=== PATIENT | female | born 1995 | race Caucasian/White ===

== ENCOUNTER 2016-07-30 01:40 | Emergency (ER) | payer OTHER ==
[2016-07-30] MEDS ORDERED: SODIUM CHLORIDE 0.9% 1,000 ML IV ONE (02:04)
[2016-07-30 02:45] LABS: Basophils % (A) 0 %; CH 29.8; Eosinophils % (A) 0 %; HCT 38.3 % (34.0-46.0); HDW 2.24; HGB 12.7 gm/dL (11.4-16.0); Luc # (Auto) 0.09; Luc % (Auto) 1; Lymphocytes # (A) 0.7 k/uL (1.0-4.8); Lymphocytes % (A) 6 %; MCH 29.2 pg (25.0-35.0); MCHC 33.2 g/dL (31.0-37.0); Mean Platelet Volume 6.5; Monocytes # (A) 0.5 k/uL (0-1.0); Monocytes % (A) 4 %; Neutrophils # (A) 10.5 k/uL (1.3-7.7); Neutrophils % (A) 89 %; RBC 4.36 m/uL (3.80-5.40); RDW 12.7 % (11.5-15.5); WBC 11.9 k/uL (4.0-11.0)
--- NOTE | 2016-07-30 02:51 | XR ---
EXAM: XR Chest, 2 Views. CLINICAL HISTORY: Reason: Cough and chest pain TECHNIQUE: Frontal and lateral views of the chest. COMPARISON: None FINDINGS: Lungs/pleura: Normal. No focal consolidation. No pleural effusion or pneumothorax. Heart/mediastinum: Normal. No cardiomegaly. Soft tissues: Unremarkable. Bones: No acute fracture. Upper abdomen: Normal. IMPRESSION: No acute disease.
[2016-07-30 02:53] LABS: ALT 25 U/L (9-52); AST 19 U/L (14-36); Alkaline Phosphatase 70 U/L (38-126); Anion Gap 13 mmol/L; Blood Urea Nitrogen 13 mg/dL (7-17); Calcium 9.6 mg/dL (8.4-10.2); Carbon Dioxide 21 mmol/L (22-30); Chloride 106 mmol/L (98-107); Glucose 99 mg/dL (74-99); Non-African American GFR(MDRD) >60 (>60 ml/min/1.73 sqM); Potassium 3.8 mmol/L (3.5-5.1); Sodium 140 mmol/L (137-145); Total Bilirubin 0.5 mg/dL (0.2-1.3); Total Protein 7.7 g/dL (6.3-8.2)
[2016-07-30 03:04] VITALS: RESP 18
[2016-07-30] MEDS ORDERED: KETOROLAC 30 MG/ML 1 ML VIAL IVP STA (03:14)
[2016-07-30] MEDS ORDERED: AZITHROMYCIN 500 MG TAB PO STA (03:14)
--- NOTE | 2016-07-30 03:15 | ED ---
Fever HPI - General Chief Complaint: Fever Stated Complaint: fever, neck pain Time Seen by Provider: 07/30/16 01:52 Source: patient, RN notes reviewed Mode of arrival: ambulatory Limitations: no limitations - History of Present Illness Initial Comments: Patient is a 20-year-old female chief complaint of sore throat, neck pain, body aches and fever for approximately 2 days. Patient states that he's been taking Motrin and Tylenol throughout the day. She states last dose of Motrin Tylenol as 45 minutes prior to arriving to the emergency department. Patient states that she has no significant past medical history. She states she's had a mild cough. Patient states nonproductive. She states that she's had no history of mono. She denies any history of sick contacts. Patient reports that she is a college student. Patient states that she receives all childhood vaccinations including a meningitis vaccination. - Related Data Previous Rx's Medication Instructions Recorded Azithromycin [Zithromax Z-pack] 250 mg PO DIRECTED #6 tab 07/30/16 Allergies Allergy/AdvReac Type Severity Reaction Status Date / Time No Known Allergies Allergy Verified 07/30/16 01:51 Review of Systems ROS Statement: Those systems with pertinent positive or pertinent negative responses have been documented in the HPI. ROS Other: All systems not noted in ROS Statement are negative. Past Medical History Past Medical History: No Reported History History of Any Multi-Drug Resistant Organisms: MRSA Date of last positivie culture/infection: 2008 MDRO Source:: buttock Past Surgical History: Hernia Repair Past Psychological History: Anxiety Smoking Status: Never smoker Past Alcohol Use History: None Reported Past Drug Use History: None Reported General Exam - General Exam Comments Initial Comments: Patient is a pleasant 20-year-old female. Patient does not appear to be in any acute distress. Limitations: no limitations General appearance: alert, in no apparent distress Head exam: Present: atraumatic, normocephalic, normal inspection Eye exam: Present: normal appearance, PERRL, EOMI. Absent: scleral icterus, conjunctival injection, periorbital swelling ENT exam: Present: normal exam, mucous membranes moist. Absent: normal oropharynx (Erythematous and enlarged tonsils. No evidence of exudate.) Neck exam: Present: normal inspection, full ROM, lymphadenopathy (anterior cervical lymphadenopathy), other (She has negative Brudzinski and Kernig sign.) . Absent: tenderness, meningismus Respiratory exam: Present: normal lung sounds bilaterally. Absent: respiratory distress, wheezes, rales, rhonchi, stridor Cardiovascular Exam: Present: regular rate, tachycardia, normal heart sounds. Absent: normal rhythm, systolic murmur, diastolic murmur, rubs, gallop, clicks GI/Abdominal exam: Present: soft, normal bowel sounds. Absent: distended, tenderness, guarding, rebound, rigid Extremities exam: Present: normal inspection, full ROM, normal capillary refill. Absent: tenderness, pedal edema, joint swelling, calf tenderness Back exam: Present: normal inspection Neurological exam: Present: alert, oriented X3, CN II-XII intact Psychiatric exam: Present: normal affect, normal mood Skin exam: Present: warm, dry, intact, normal color. Absent: rash Course Vital Signs 07/30/16 07/30/16 01:49 02:52 Temperature 102.4 F H 100.7 F H Pulse Rate 124 H 117 H Respiratory 20 18 Rate Blood Pressure 110/60 114/57 O2 Sat by Pulse 95 100 Oximetry Medical Decision Making - Medical Decision Making This is a pleasant 20-year-old female chief complaint of sore throat, neck pain , and fever for approximately one day. Patient received Motrin Tylenol 45 minutes prior to arriving to the emergency department. Patient's vital signs of the emergency department for fever of 102.4. Tachycardic at 1 24 bpm. Respiratory rate in breaths per minute. BP stable. Patient physical exam findings are consistent with anterior cervical lymphadenopathy. She does have significantly erythematous and swollen tonsils. Patient has no exudate. Patient has negative meningeal signs include a negative Kernig's and Brudzinski sign. Patient lab work was obtained and patient given IV fluids. Patient was negative for flu, strep and heterophile. Patient will be started on antibiotic for physical exam findings of her tonsils. Patient be started on azithromycin. Discussed close follow-up with primary care provider on Sunday. Patient agrees to stay hydrated discussed Motrin and Tylenol every 4 hours. Patient agrees with treatment plan will comply. Return parameters were discussed. - Lab Data Result diagrams: 07/30/16 02:00 07/30/16 02:00 Lab Results 04/23/17 04/23/17 04/23/17 Range/Units 02:00 02:00 02:00 WBC 11.9 H (4.0-11.0) k/uL RBC 4.36 (3.80-5.40) m/uL Hgb 12.7 (11.4-16.0) gm/dL Hct 38.3 (34.0-46.0) % MCV 88.0 (80.0-100.0) fL MCH 29.2 (25.0-35.0) pg MCHC 33.2 (31.0-37.0) g/dL RDW 12.7 (11.5-15.5) % Plt Count 279 (150-450) k/uL Neutrophils % 89 % Lymphocytes % 6 % Monocytes % 4 % Eosinophils % 0 % Basophils % 0 % Neutrophils # 10.5 H (1.3-7.7) k/uL Lymphocytes # 0.7 L (1.0-4.8) k/uL Monocytes # 0.5 (0-1.0) k/uL Eosinophils # 0.0 (0-0.7) k/uL Basophils # 0.0 (0-0.2) k/uL Sodium (137-145) mmol/L Potassium (3.5-5.1) mmol/L Chloride (98-107) mmol/L Carbon Dioxide (22-30) mmol/L Anion Gap mmol/L BUN (7-17) mg/dL Creatinine (0.52-1.04) mg/dL Est GFR (MDRD) Af Amer (>60 ml/min/1.73 sqM) Est GFR (MDRD) Non-Af (>60 ml/min/1.73 sqM) Glucose (74-99) mg/dL Calcium (8.4-10.2) mg/dL Total Bilirubin (0.2-1.3) mg/dL AST (14-36) U/L ALT (9-52) U/L Alkaline Phosphatase (38-126) U/L Total Protein (6.3-8.2) g/dL Albumin (3.5-5.0) g/dL Heterophile Antibody (Negative) Influenza Type A RNA Not Detected (Not Detectd) Influenza Type B (PCR) Not Detected (Not Detectd) Group A Strep Rapid Negative (Negative) 04/23/17 04/23/17 Range/Units 02:00 02:00 WBC (4.0-11.0) k/uL RBC (3.80-5.40) m/uL Hgb (11.4-16.0) gm/dL Hct (34.0-46.0) % MCV (80.0-100.0) fL MCH (25.0-35.0) pg MCHC (31.0-37.0) g/dL RDW (11.5-15.5) % Plt Count (150-450) k/uL Neutrophils % % Lymphocytes % % Monocytes % % Eosinophils % % Basophils % % Neutrophils # (1.3-7.7) k/uL Lymphocytes # (1.0-4.8) k/uL Monocytes # (0-1.0) k/uL Eosinophils # (0-0.7) k/uL Basophils # (0-0.2) k/uL Sodium 140 (137-145) mmol/L Potassium 3.8 (3.5-5.1) mmol/L Chloride 106 (98-107) mmol/L Carbon Dioxide 21 L (22-30) mmol/L Anion Gap 13 mmol/L BUN 13 (7-17) mg/dL Creatinine 0.90 (0.52-1.04) mg/dL Est GFR (MDRD) Af Amer >60 (>60 ml/min/1.73 sqM) Est GFR (MDRD) Non-Af >60 (>60 ml/min/1.73 sqM) Glucose 99 (74-99) mg/dL Calcium 9.6 (8.4-10.2) mg/dL Total Bilirubin 0.5 (0.2-1.3) mg/dL AST 19 (14-36) U/L ALT 25 (9-52) U/L Alkaline Phosphatase 70 (38-126) U/L Total Protein 7.7 (6.3-8.2) g/dL Albumin 4.4 (3.5-5.0) g/dL Heterophile Antibody Negative (Negative) Influenza Type A RNA (Not Detectd) Influenza Type B (PCR) (Not Detectd) Group A Strep Rapid (Negative) - Radiology Data Radiology results: report reviewed X-rays x-rays negative for any acute process. Disposition Clinical Impression: Pharyngitis Disposition: HOME SELF-CARE Condition: Good Instructions: Fever in Adults (ED), Pharyngitis (ED) Additional Instructions: Follow-up with primary care provider on Sunday. Return to the emergency department if any alarming signs or symptoms occur. Patient advised to alternate between Motrin and Tylenol every 4 hours. Rest, remain hydrated. Prescriptions: Azithromycin [Zithromax Z-pack] 250 mg PO DIRECTED #6 tab Time of Disposition: 03:13
[2016-07-30 03:30] VITALS: BP 113/70; PULSE 109; TEMP 98.6
[2016-07-30 03:33] LABS: Appearance,Urine Clear (Clear); Bacteria,Urine Rare /hpf; Bilirubin,Urine Negative (Negative); Glucose,Urine (UA) Negative (Negative); Ketones,Urine Negative (Negative); Leukocyte Esterase,Urine Trace (Negative); Mucus,Urine Rare /hpf; Nitrite,Urine Negative (Negative); PH, Urine 6.5 (5.0-8.0); Particle Count 2235; Protein,Urine Trace (Negative); RBC,Urine 2 /hpf (0-5); Specific Gravity,Urine 1.023 (1.001-1.035); Squamous Epithelial Cell,Urine 3 /hpf (0-4); UA Billing (MACRO vs. MICRO) MICRO; Urobilinogen,Urine <2.0 mg/dL (<2.0); WBC,Urine 6 /hpf (0-5)
== END 2016-07-30 03:41 | disposition home or self-care (01) ==
LOC: EC 01:40
DX: J02.9 Acute pharyngitis, unspecified (principal); M54.2 Cervicalgia
CPT/HCPCS: 36415; 80053; 85025; 86308; 81001; 81025; 87081; 87430; 87502; 71020; 99283; 96374; 96361; J1885

== ENCOUNTER → 2017-03-08 | Outpatient (CLI) | payer OTHER ==
--- NOTE | 2017-03-08 10:22 | USB ---
Reason for exam: clinical finding. Physical Findings: Nurse Summary: left breast 10 o'clock patient area concern, prominent nodular area, bilateral nodularity (nurse ts). US Breast LT Left breast ultrasound includes all four quadrants, the retroareolar region and axilla. Finding demonstrates no cystic or solid lesion seen. Nothing seen at 10 o'clock BB. Dense tissues noted at the palpable site. These results were verbally communicated with the patient and result sheet given to the patient on 03/08/17. ASSESSMENT: Negative, BI-RAD 1 RECOMMENDATION: Routine screening mammogram of both breasts at age 41. (unless clinical indication to start sooner) Manage on a clinical basis with regard to any suspicious palpable finding.
== END ==
LOC: RADUSWWP 08:13
PROVIDERS: ATTEND Pediatrics
DX: N63.20 Unspecified lump in the left breast, unspecified quadrant (principal)

== ENCOUNTER 2017-06-23 16:24 | Emergency (ER) | payer OTHER ==
[2017-06-23 17:03] VITALS: BP 134/78; PULSE 93; RESP 16; TEMP 98.7
--- NOTE | 2017-06-23 17:23 | ED ---
General Adult HPI - General Chief complaint: Extremity Problem,Nontraumatic Stated complaint: Tailbone Pain Time Seen by Provider: 06/23/17 17:03 Source: patient, RN notes reviewed Mode of arrival: ambulatory Limitations: no limitations - History of Present Illness Initial comments: 21 yo female presents to the ER with cc of tailbone pain. Patient states her tailbone has been hurting for the last 3 days. She denies any falls, trauma, or injury. SHe has not had drainage or discharge. SHe denies any history of this in the past. She states one certain area hurts to touch more then the other. NO other complaints. Patient denies any other symptoms. Patient denies any recent fever, chills, shortness of breath, chest pain, back pain, abdominal pain, nausea vomiting, numbness or tingling, dysuria or hematuria, constipation or diarrhea, headaches or visual changes, or any other current symptoms. - Related Data Previous Rx's Medication Instructions Recorded Sulfamethox-Tmp 800-160Mg [Bactrim 2 each PO Q12HR #56 tab 06/23/17 DS 800-160 mg] Allergies Allergy/AdvReac Type Severity Reaction Status Date / Time No Known Allergies Allergy Verified 06/23/17 17:14 Review of Systems ROS Statement: Those systems with pertinent positive or pertinent negative responses have been documented in the HPI. ROS Other: All systems not noted in ROS Statement are negative. Past Medical History Past Medical History: No Reported History History of Any Multi-Drug Resistant Organisms: MRSA Date of last positivie culture/infection: 2008 MDRO Source:: buttock Past Surgical History: Hernia Repair Past Psychological History: Anxiety Smoking Status: Never smoker Past Alcohol Use History: None Reported Past Drug Use History: None Reported General Exam Limitations: no limitations General appearance: alert, in no apparent distress ENT exam: Present: normal exam, mucous membranes moist Neck exam: Present: normal inspection. Absent: tenderness, meningismus, lymphadenopathy Respiratory exam: Present: normal lung sounds bilaterally. Absent: respiratory distress, wheezes, rales, rhonchi, stridor Cardiovascular Exam: Present: regular rate, normal rhythm, normal heart sounds. Absent: systolic murmur, diastolic murmur, rubs, gallop, clicks Back exam: Present: normal inspection, full ROM, tenderness (over the right of sacrum no redness, no fluctuance) Neurological exam: Present: alert, oriented X3 Psychiatric exam: Present: normal affect, normal mood Skin exam: Present: warm, dry, intact, normal color. Absent: rash Course Vital Signs 06/23/17 17:01 Temperature 98.7 F Pulse Rate 93 Respiratory 16 Rate Blood Pressure 134/78 O2 Sat by Pulse 99 Oximetry Medical Decision Making - Medical Decision Making 21-year-old female presents with pain over the right side of the sacrum. At this time is improving abscess x-rays reviewed and negative. At this time we discussed follow-up with her doctor. We discussed we will start her on antibiotics in case there is a starting of a pilonidal cyst. Patient stated that she understood and she is agreement this plan. All questions have been answered. She'll be discharged. Disposition Clinical Impression: Pilonidal cyst Disposition: HOME SELF-CARE Condition: Stable Instructions: Pilonidal Cyst (ED) Additional Instructions: Please use medication as discussed. Please follow up with family doctor if symptoms have not improved over the next two days. Please return to the emergency room if your symptoms increase or worsen or for any other concerns. Prescriptions: Sulfamethox-Tmp 800-160Mg [Bactrim DS 800-160 mg] 2 each PO Q12HR #56 tab Referrals: Dewey Jha MD [Primary Care Provider] - 1-2 days Time of Disposition: 17:53
--- NOTE | 2017-06-23 17:35 | XR ---
EXAMINATION TYPE: XR sacrum coccyx DATE OF EXAM: 06/23/2017 CLINICAL HISTORY: Sacral pain TECHNIQUE: 3 views of the sacrum were obtained. COMPARISON: None. FINDINGS: There is no acute fracture/dislocation evident in the pelvis. The hip and sacroiliac join ts appear symmetric and unremarkable. The overlying soft tissue appears unremarkable. IMPRESSION: There is no acute fracture or dislocation in the pelvis.
== END 2017-06-23 18:00 | disposition home or self-care (01) ==
LOC: EC 16:24
DX: L05.91 Pilonidal cyst without abscess (principal); Z86.14 Personal history of Methicillin resistant Staphylococcus aureus infection
CPT/HCPCS: 72220; 99283

== ENCOUNTER → 2017-11-26 | Outpatient (CLI) | payer OTHER ==
--- NOTE | 2017-11-26 11:21 | US ---
EXAMINATION TYPE: US abdomen complete DATE OF EXAM: 11/26/2017 COMPARISON: Complete abdominal ultrasound August 12, 2014 CLINICAL HISTORY: R10.9 Abdominal pain. Generalized abdomen pain. NPO. EXAM MEASUREMENTS: Liver Length: 12.6 cm Gallbladder Wall: 0.2 cm CBD: 0.2 cm CHD: 0.2 cm Spleen: 9.9 cm Right Kidney: 10.9 x 4.3 x 4.4 cm Left Kidney: 10.1 x 4.5 x 5.2 cm Pancreas: wnl Liver: wnl Gallbladder: wnl Evidence for sonographic Lara's sign: neg CBD: wnl CHD: wnl Spleen: wnl Right Kidney: wnl Left Kidney: wnl Upper IVC: wnl Abd Aorta: wnl The visualized liver is homogenous. The intrahepatic portion of the IVC and proximal abdominal aorta are within normal limits. There is no evidence of cholelithiasis. Common bile duct is unremarkable . The visualized portions of the pancreas are homogenous. The spleen is unremarkable. Kidneys are symmetric and free of hydronephrosis. No suspicious solid or cystic renal lesions are seen. IMPRESSION: No suspicious finding is seen to account for patient's symptoms.
== END | disposition home or self-care (01) ==
LOC: RADUSWWP 09:47
PROVIDERS: ATTEND Pediatrics
DX: R10.9 Unspecified abdominal pain (principal)
CPT/HCPCS: 76700

== ENCOUNTER → 2018-11-29 | Outpatient (CLI) | payer OTHER ==
--- NOTE | 2018-11-29 14:11 | US ---
EXAMINATION TYPE: US abdomen complete DATE OF EXAM: 11/29/2018 COMPARISON: 11/26/2017 CLINICAL HISTORY: R10.33 Periumbilical pain; N92.6 Irregular..... Pelvic pain and cramping, diarrhea EXAM MEASUREMENTS: Liver Length: 12.6 cm Gallbladder Wall: 0.2 cm CBD: 0.5 cm Spleen: 8.7 cm Right Kidney: 10.1 x 4.9 x 3.7 cm Left Kidney: 10.1 x 4.1 x 5.1 cm Pancreas: wnl Liver: wnl Gallbladder: wnl Evidence for sonographic Lara's sign: no CBD: wnl Spleen: wnl Right Kidney: wnl Left Kidney: wnl Upper IVC: wnl Abd Aorta: wnl Impressions: 1. Normal abdomen ultrasound.
--- NOTE | 2018-11-29 14:13 | US ---
EXAMINATION TYPE: US pelvic complete DATE OF EXAM: 11/29/2018 COMPARISON: NONE CLINICAL HISTORY: R10.33 Periumbilical pain; N92.6 Irregular..... irregular menses ( not every month) x 1.5 years; pelvic pain and cramping, diarrhea. TECHNIQUE: Transvaginal (TV) and Transabdominal (TA) . Transabdominal sonographic images of the pel vis were acquired. Transvaginal sonographic images were medically necessary to better assess the fol lowing anatomy: endometrium Date of LMP: 11/07/2018 EXAM MEASUREMENTS: Uterus: 7.4 x 4.9 x 2.4 cm Endometrial Stripe: 0.7 cm Right Ovary: 2.5 x 2.4 x 2.1 cm Left Ovary: 2.6 x 2.0 x 1.7 cm 1. Uterus: Anteverted 2. Endometrium: arcuate appearance to upper endometrium and thickness is wnl 3. Right Ovary: small follicles present and possible involuting cyst with peripheral ring of color flow = 1.0 x 1.2 x 1.4cm 4. Left Ovary: small follicles Spectral, color and waveform Doppler imaging shows good arterial and venous flow within the ovaries ; there is no evidence for ovarian torsion. 5. Bilateral Adnexa: wnl 6. Posterior cul-de-sac: wnl IMPRESSION: 1. There is a suggestion of the endometrial canal could have an arcuate appearance. This may be diana r evaluated with MRI. 2. Small right ovarian cyst which may be an involuting cyst.
== END | disposition home or self-care (01) ==
LOC: RADUSWWP 12:10
PROVIDERS: ATTEND Pediatrics
DX: N83.201 Unspecified ovarian cyst, right side (principal); R10.33 Periumbilical pain; N92.6 Irregular menstruation, unspecified
CPT/HCPCS: 76700; 76830; 76856

== ENCOUNTER → 2019-12-26 | Outpatient (CLI) | payer OTHER ==
--- NOTE | 2019-12-26 16:42 | CT ---
EXAMINATION TYPE: CT abdomen pelvis w con DATE OF EXAM: 12/26/2019 COMPARISON: Abdominal ultrasound 11/29/2018 HISTORY: Right upper quadrant abdominal pain. CT DLP: 345.2 mGycm Automated exposure control for dose reduction was used. TECHNIQUE: Helical acquisition of images was performed from the lung bases through the pelvis. CONTRAST: Performed with Oral Contrast and with IV Contrast, patient injected with 100ml mL of Isovue 300. FINDINGS: LUNG BASES: Normal. LIVER: Normal. BILIARY SYSTEM: Normal. PANCREAS: Normal. SPLEEN: Normal. ADRENALS: Normal. KIDNEYS: Normal. BOWEL: Normal. PERITONEUM: No free air is visualized. No free fluid. ADENOPATHY: No lymphadenopathy. PELVIS: Normal. VASCULATURE: No abdominal aortic aneurysm. MUSCULOSKELETAL: Normal. IMPRESSION: No acute abdominopelvic process. Unremarkable CT exam.
== END | disposition home or self-care (01) ==
LOC: RADCTMAIN 13:02
PROVIDERS: ATTEND Pediatrics
DX: R10.11 Right upper quadrant pain (principal)
CPT/HCPCS: 74177; Q9967

== ENCOUNTER 2020-06-19 13:32 | Emergency (ER) | payer OTHER ==
[2020-06-19 13:45] VITALS: RESP 18; TEMP 98.4
[2020-06-19] MEDS ORDERED: ACETAMINOPHEN TAB 325 MG TAB PO STA (14:25)
[2020-06-19] MEDS ORDERED: SODIUM CHLORIDE 0.9% 1,000 ML IV ONE (14:25)
[2020-06-19 15:31] LABS: Appearance,Urine Clear (Clear); Bacteria,Urine Rare /hpf; Bilirubin,Urine Negative (Negative); Blood,Urine Moderate (Negative); Color,Urine Yellow; Glucose,Urine (UA) Negative (Negative); Ketones,Urine Negative (Negative); Leukocyte Esterase,Urine Negative (Negative); Mucus,Urine Few /hpf; Nitrite,Urine Negative (Negative); Protein,Urine Negative (Negative); RBC,Urine 3 /hpf (0-5); Specific Gravity,Urine 1.023 (1.001-1.035); Squamous Epithelial Cell,Urine 2 /hpf (0-4); Urobilinogen,Urine <2.0 mg/dL (<2.0); WBC,Urine 1 /hpf (0-5)
--- NOTE | 2020-06-19 15:32 | US ---
EXAMINATION TYPE: Transabdominal/ TV OB US DATE OF EXAM: 06/19/2020 3:06 PM COMPARISON: NONE CLINICAL HISTORY: pain. Vaginal bleeding in early ; . EXAM PERFORMED: Transvaginal (TV) and Transabdominal (TA) EXAM MEASUREMENTS: GESTATIONAL AGE / DATING Physician Established: Not yet established Dates by LMP: approximation per patient (9 weeks/5 days) EDC: 01/17/2021 Dates by First Scan: No previous Dates by Current Scan for: No IUP or ectopic is seen MATERNAL ANATOMY Uterus: 6.4 x 5.0 x 3.8cm, thin anechoic fluid area = 1.0 x 0.3 x 0.1cm is seen in cervix. Right Ovary: 3.9 x 2.9 x 2.0cm; complex cyst noted in right ovary = 0.8 x 1.0 x 0.9cm Left Ovary: 2.8 x 2.4 x 2.1cm; primarily hypoechoic solid oval mass seen in left ovary with periphera l ring of color flow suggests corpus luteum of = 0.9 x 1.2 x 0.8cm Post CDS / Adnexa: wnl Presence of free fluid: no Presence of corpus luteal cyst: in left ovary GESTATION / SURVEY No IUP or ectopic is seen by US. Date of LMP: approximately 04/12/2020 Beta HcG (if available): NA IMPRESSION: The uterus is empty. No adnexal mass or free fluid seen to suggest ectopic . No evidence of ovarian torsion.
[2020-06-19 15:40] LABS: ALT 10 U/L (4-34); AST 26 U/L (14-36); African American GFR (CKD) >90 (>60 ml/min/1.73 sqM); Albumin 5.2 g/dL (3.5-5.0); Alkaline Phosphatase 55 U/L (38-126); Anion Gap 12 mmol/L; Basophils % (A) 1 %; Blood Urea Nitrogen 13 mg/dL (7-17); Calcium 9.8 mg/dL (8.4-10.2); Carbon Dioxide 22 mmol/L (22-30); Chloride 106 mmol/L (98-107); Eosinophils # (A) 0.1 k/uL (0-0.7); Eosinophils % (A) 1 %; Glucose 93 mg/dL (74-99); HCT 42.7 % (34.0-46.0); HGB 14.5 gm/dL (11.4-16.0); Lymphocytes # (A) 1.5 k/uL (1.0-4.8); Lymphocytes % (A) 21 %; MCH 30.9 pg (25.0-35.0); MCHC 34.1 g/dL (31.0-37.0); MCV 90.8 fL (80.0-100.0); Mean Platelet Volume 6.6; Monocytes # (A) 0.4 k/uL (0-1.0); Monocytes % (A) 6 %; Neutrophils # (A) 4.8 k/uL (1.3-7.7); Neutrophils % (A) 70 %; Non-African American GFR(CKD) >90 (>60 ml/min/1.73 sqM); Platelet Count 463 k/uL (150-450); Potassium 4.5 mmol/L (3.5-5.1); RDW 12.2 % (11.5-15.5); Sodium 140 mmol/L (137-145); Total Bilirubin 0.3 mg/dL (0.2-1.3); Total Protein 8.4 g/dL (6.3-8.2); WBC 6.8 k/uL (3.8-10.6)
[2020-06-19 15:51] LABS: HCG,Quantitative Serum 191.2 mIU/mL
--- NOTE | 2020-06-19 16:14 | ED ---
General Adult HPI - General Chief complaint: Vaginal Bleeding Stated complaint: Bleeding/9 weeks preg Time Seen by Provider: 06/19/20 13:56 Source: patient Mode of arrival: ambulatory Limitations: no limitations - History of Present Illness Initial comments: 24-year-old female patient presents to the emergency department today for evaluation of vaginal bleeding and abdominal cramping. Patient states that she's had symptoms for the last couple of days. States she did have a couple of small blood clots. Patient states her last menstrual period was April 16. States she does have irregular periods. Had a positive test about a week ago. She is . No history of miscarriage. Denies dizziness or weakness. She has not yet seen an [facility]. No previous ultrasound. Patient denies any recent rash, fever, chills, cough, shortness of breath, chest pain, nausea, vomiting, diarrhea, constipation, numbness, tingling, dizziness, weakness, hematuria, dysuria, urinary urgency, urinary frequency, headache, visual changes, or any other complaints. - Related Data Previous Rx's Medication Instructions Recorded Sulfamethox-Tmp 800-160Mg [Bactrim 2 each PO Q12HR #56 tab 06/23/17 DS 800-160 mg] Allergies Allergy/AdvReac Type Severity Reaction Status Date / Time No Known Allergies Allergy Verified 06/19/20 13:45 Review of Systems ROS Statement: Those systems with pertinent positive or pertinent negative responses have been documented in the HPI. ROS Other: All systems not noted in ROS Statement are negative. Past Medical History Past Medical History: No Reported History History of Any Multi-Drug Resistant Organisms: MRSA Date of last positivie culture/infection: 2008 MDRO Source:: buttock Past Surgical History: Hernia Repair Past Psychological History: Anxiety Smoking Status: Never smoker Past Alcohol Use History: None Reported Past Drug Use History: None Reported General Exam Limitations: no limitations General appearance: alert, in no apparent distress, other (Physical well- developed, well-nourished adult female patient in no acute distress. Vital signs upon presentation are temperature 98.4F, pulse 98, respirations 18, blood pressure 118/76, pulse ox 100% on room air.) Eye exam: Present: normal appearance, PERRL, EOMI. Absent: scleral icterus, conjunctival injection, periorbital swelling ENT exam: Present: normal exam, normal oropharynx, mucous membranes moist Respiratory exam: Present: normal lung sounds bilaterally. Absent: respiratory distress, wheezes, rales, rhonchi, stridor Cardiovascular Exam: Present: regular rate, normal rhythm, normal heart sounds. Absent: systolic murmur, diastolic murmur, rubs, gallop, clicks GI/Abdominal exam: Present: soft, normal bowel sounds. Absent: distended, tenderness, guarding, rebound, rigid External exam: Present: normal external exam Speculum exam: Present: vaginal bleeding, other (Cervical os is closed) By manual exam: Present: normal by manual exam Neurological exam: Present: alert, oriented X3, CN II-XII intact Psychiatric exam: Present: normal affect, normal mood Skin exam: Present: warm, dry, intact, normal color. Absent: rash Course Vital Signs 06/19/20 06/19/20 06/19/20 13:41 16:34 16:38 Temperature 98.4 F 98.4 F Pulse Rate 98 77 77 Respiratory 18 18 18 Rate Blood Pressure 118/76 112/60 112/60 O2 Sat by Pulse 100 100 100 Oximetry Medical Decision Making - Medical Decision Making 24-year-old female patient presents to the emergency department today for a dilation of vaginal bleeding. Had a positive test 1 week ago. She is . Physical examination is unremarkable. Patient did have mild this bleeding from the cervical os which was closed. Labs reviewed and did reveal hCG of 191. Ultrasound showed empty uterus. ABO/Rh is B+. We did discuss findings and results. She will be given a lab slip to have repeat hCG performed in 2 days. We did discuss possibility of threatened miscarriage versus early . She is instructed to contact her [facility] for appointment. Return parameters were discussed in detail. She verbalizes understanding and agrees with this plan. Case discussed with my attending Dr. Cardenas. - Lab Data Result diagrams: 06/19/20 15:10 06/19/20 15:10 Lab Results 06/19/20 06/19/20 06/19/20 Range/Units 15:10 15:10 15:10 WBC 6.8 (3.8-10.6) k/uL RBC 4.70 (3.80-5.40) m/uL Hgb 14.5 (11.4-16.0) gm/dL Hct 42.7 (34.0-46.0) % MCV 90.8 (80.0-100.0) fL MCH 30.9 (25.0-35.0) pg MCHC 34.1 (31.0-37.0) g/dL RDW 12.2 (11.5-15.5) % Plt Count 463 H (150-450) k/uL MPV 6.6 Neutrophils % 70 % Lymphocytes % 21 % Monocytes % 6 % Eosinophils % 1 % Basophils % 1 % Neutrophils # 4.8 (1.3-7.7) k/uL Lymphocytes # 1.5 (1.0-4.8) k/uL Monocytes # 0.4 (0-1.0) k/uL Eosinophils # 0.1 (0-0.7) k/uL Basophils # 0.0 (0-0.2) k/uL Sodium 140 (137-145) mmol/L Potassium 4.5 (3.5-5.1) mmol/L Chloride 106 (98-107) mmol/L Carbon Dioxide 22 (22-30) mmol/L Anion Gap 12 mmol/L BUN 13 (7-17) mg/dL Creatinine 0.81 (0.52-1.04) mg/dL Est GFR (CKD-EPI)AfAm >90 (>60 ml/min/1.73 sqM) Est GFR (CKD-EPI)NonAf >90 (>60 ml/min/1.73 sqM) Glucose 93 (74-99) mg/dL Calcium 9.8 (8.4-10.2) mg/dL Total Bilirubin 0.3 (0.2-1.3) mg/dL AST 26 (14-36) U/L ALT 10 (4-34) U/L Alkaline Phosphatase 55 (38-126) U/L Total Protein 8.4 H (6.3-8.2) g/dL Albumin 5.2 H (3.5-5.0) g/dL HCG, Quant 191.2 mIU/mL Urine Color Yellow Urine Appearance Clear (Clear) Urine pH 5.0 (5.0-8.0) Ur Specific [place] 1.023 (1.001-1.035) Urine Protein Negative (Negative) Urine Glucose (UA) Negative (Negative) Urine Ketones Negative (Negative) Urine Blood Moderate H (Negative) Urine Nitrite Negative (Negative) Urine Bilirubin Negative (Negative) Urine Urobilinogen <2.0 (<2.0) mg/dL Ur Leukocyte Esterase Negative (Negative) Urine RBC 3 (0-5) /hpf Urine WBC 1 (0-5) /hpf Ur Squamous Epith Cells 2 (0-4) /hpf Urine Bacteria Rare H (None) /hpf Urine Mucus Few H (None) /hpf Blood Type Blood Type Recheck Bld Type Recheck Status 06/19/20 Range/Units 15:10 WBC (3.8-10.6) k/uL RBC (3.80-5.40) m/uL Hgb (11.4-16.0) gm/dL Hct (34.0-46.0) % MCV (80.0-100.0) fL MCH (25.0-35.0) pg MCHC (31.0-37.0) g/dL RDW (11.5-15.5) % Plt Count (150-450) k/uL MPV Neutrophils % % Lymphocytes % % Monocytes % % Eosinophils % % Basophils % % Neutrophils # (1.3-7.7) k/uL Lymphocytes # (1.0-4.8) k/uL Monocytes # (0-1.0) k/uL Eosinophils # (0-0.7) k/uL Basophils # (0-0.2) k/uL Sodium (137-145) mmol/L Potassium (3.5-5.1) mmol/L Chloride (98-107) mmol/L Carbon Dioxide (22-30) mmol/L Anion Gap mmol/L BUN (7-17) mg/dL Creatinine (0.52-1.04) mg/dL Est GFR (CKD-EPI)AfAm (>60 ml/min/1.73 sqM) Est GFR (CKD-EPI)NonAf (>60 ml/min/1.73 sqM) Glucose (74-99) mg/dL Calcium (8.4-10.2) mg/dL Total Bilirubin (0.2-1.3) mg/dL AST (14-36) U/L ALT (4-34) U/L Alkaline Phosphatase (38-126) U/L Total Protein (6.3-8.2) g/dL Albumin (3.5-5.0) g/dL HCG, Quant mIU/mL Urine Color Urine Appearance (Clear) Urine pH (5.0-8.0) Ur Specific [place] (1.001-1.035) Urine Protein (Negative) Urine Glucose (UA) (Negative) Urine Ketones (Negative) Urine Blood (Negative) Urine Nitrite (Negative) Urine Bilirubin (Negative) Urine Urobilinogen (<2.0) mg/dL Ur Leukocyte Esterase (Negative) Urine RBC (0-5) /hpf Urine WBC (0-5) /hpf Ur Squamous Epith Cells (0-4) /hpf Urine Bacteria (None) /hpf Urine Mucus (None) /hpf Blood Type B Positive Blood Type Recheck No Previous Record Bld Type Recheck Status [facility] ONLY - Radiology Data Radiology results: report reviewed Ultrasound of the pelvis is obtained report reviewed in its entirety. Impression by Dr. Harding shows empty uterus. No adnexal mass or free fluid seen to suggest ectopic . No evidence of ovarian torsion. Disposition Clinical Impression: Threatened Disposition: HOME SELF-CARE Condition: Good Instructions (If sedation given, give patient instructions): Threatened Miscarriage (ED) Additional Instructions: Follow up with OBGYN for recheck as soon as possible. Pelvic rest until follow up with OBGYN. Increase fluids. Rest. Take, Motrin for pain control. Follow- up the primary care physician for recheck as needed. Return to the emergency department for any new, worsening, or concerning symptoms. Is patient prescribed a controlled substance at d/c from ED?: No Referrals: None,Stated [Primary Care Provider] - 1-2 days Time of Disposition: 16:20
[2020-06-19 16:35] VITALS: BP 112/60; PULSE 77
== END 2020-06-19 16:38 | disposition home or self-care (01) ==
LOC: EC 13:32
DX: O20.0 Threatened abortion (principal); O99.341 Other mental disorders complicating pregnancy, first trimester; F41.9 Anxiety disorder, unspecified; Z3A.09 9 weeks gestation of pregnancy
CPT/HCPCS: 36415; 76801; 76817; 80053; 81001; 84702; 85025; 86900; 86901; 99284

== ENCOUNTER → 2020-06-21 | Outpatient (CLI) | payer OTHER | END | disposition home or self-care (01) | LOC: LABWHC1 10:55 | PROVIDERS: ATTEND Nurse Practitioner | DX: O20.0 Threatened abortion (principal); Z3A.00 Weeks of gestation of pregnancy not specified | CPT/HCPCS: 36415; 84702 ==

== ENCOUNTER → 2020-09-20 | Outpatient (CLI) | payer OTHER ==
--- NOTE | 2020-09-20 16:08 | US ---
EXAMINATION TYPE: Transabdominal DATE OF EXAM: 09/20/2020 3:50 PM COMPARISON: NONE CLINICAL HISTORY: Z36 Confirm dates. EXAM PERFORMED: 09/20/2020 EXAM MEASUREMENTS: GESTATIONAL AGE / DATING Physician Established: Not yet established Dates by LMP: LMP unknown Dates by First Scan: No previous this is first scan Dates by Current Scan for: 5.4cm (12 weeks/0 days) EDC: 04-04-21 MATERNAL ANATOMY Uterus: 2.2 x 7.2 x 8.4cm Right Ovary: 3.2 x 2.5 x 2.0cm Left Ovary: obscured by overlying bowel gas/increased uterine size Post CDS / Adnexa: wnl GESTATION / SURVEY CRL: 5.4cm (12 weeks/0 days) Yolk Sac (normal less than 6mm): 3mm Heart Rate: 168 bpm Rhythm: Normal IUP: Viable IUP Nuchal Translucency 10-14wks (normal less than 3mm): 1mm Age Appropriate Anatomy Cord Insertion: not seen due to position Limbs: Visualized Calvarium: Visualized Date of LMP: Unknown Beta HcG (if available): Unknown This is not an anatomic survey. IMPRESSION: There is a single live intrauterine with gestational age measuring 12 weeks and 0 days by s onographic criteria.
== END | disposition home or self-care (01) ==
LOC: RADUSWWP 15:27
PROVIDERS: ATTEND Obstetrics & Gynecology
DX: Z34.91 Encounter for supervision of normal pregnancy, unspecified, first trimester (principal); Z3A.12 12 weeks gestation of pregnancy
CPT/HCPCS: 76801; 76813

== ENCOUNTER → 2020-11-05 | Outpatient (CLI) | payer OTHER ==
--- NOTE | 2020-11-05 11:13 | US ---
EXAMINATION TYPE: US venous doppler duplex LE RT DATE OF EXAM: 11/05/2020 10:53 AM COMPARISON: NONE CLINICAL HISTORY: O22.30 DVT. Pain edema SIDE PERFORMED: Right TECHNIQUE: The lower extremity deep venous system is examined utilizing real time linear array sonog jeni with graded compression, doppler sonography and color-flow sonography. VESSELS IMAGED: Common Femoral Vein Deep Femoral Vein Greater Saphenous Vein * Femoral Vein Popliteal Vein Small Saphenous Vein * Proximal Calf Veins (* superficial vessels) Right Leg: Negative for DVT IMPRESSION: No evidence of DVT at this time.
== END | disposition home or self-care (01) ==
LOC: RADUSWWP 10:37
PROVIDERS: ATTEND Obstetrics & Gynecology
DX: O22.30 Deep phlebothrombosis in pregnancy, unspecified trimester (principal); Z3A.00 Weeks of gestation of pregnancy not specified

== ENCOUNTER 2021-03-22 13:12 | Outpatient (CLI) | payer OTHER ==
[2021-03-22 14:26] VITALS: BP 118/70; PULSE 90; RESP 16; TEMP 98.3
--- NOTE | 2021-03-24 11:21 | P.MSEPDOC ---
Presenting Problems - Arrival Data Date of Arrival on Unit: 03/22/21 Time of Arrival on Unit: 13:23 Mode of Transport: Ambulatory - Complaint OB-Reason for Admission/Chief Complaint: Decreased Movement Comment: pt arrived c/o decreased movment. pt states she actually starting feeling some movement on the way up to the unit Medical History - Information : 2 Para: 0 Term: 0 : 0 Abortions: Spontaneous or Elective: 1 Number of Living Children: 0 - Gestational Age Gestational Age by JANNETTE (wks/days): 38 Weeks and 1 Days Review of Systems - Review of Systems Constitutional: No problems Breast: No problems ENT: No problems Cardiovascular: No problems Respiratory: No problems Gastrointestinal: No problems Genitourinary: No problems Musculoskeletal: No problems Neurological: No problems Skin: No problems Vital Signs - Temperature Temperature: 98.3 F Temperature Source: Oral - Pulse Right Brachial Pulse Rate: 90 Pulse Assessment Method: Automatic Cuff - Respirations Respiratory Rate: 16 Oxygen Delivery Method: Room Air O2 Sat by Pulse Oximetry: 98 - Blood Pressure Right Arm Blood Pressure: 118/70 Blood Pressure Mean: 86 Blood Pressure Source: Automatic Cuff Physician Notification - Physician Notified Physician Notified Date: 03/22/21 Physician Notified Time: 14:10 Physician: Dr Gomez New Order Received: Yes - Notification Comment Comment: may discharge to home with instructions and have pt keep her scheduled appointment with Dr Gomez tomorrow Maternal Triage Index - Scheduled/Requesting Priority 5 Scheduled/Requesting Priority 5: Yes Criteria Met for Priority 5: pt 38 1/7 weeks here for decreased movement. NST REACTIVE and vitals wnl Disposition - Disposition OB Disposition: Discharge to home Discharge Date: 03/22/21 Discharge Time: 14:25 I agree with the RN Medical Screening Exam: Yes Case reviewed; plan agreed upon as documented in EMR&OBIX.: Yes Diagnosis: DECREASED MOVEMENTS, THIRD TRIMESTER, FETUS 1
== END 2021-03-22 14:25 | disposition home or self-care (01) ==
LOC: FBPOP 13:12
PROVIDERS: ATTEND Obstetrics & Gynecology
DX: O36.8130 Decreased fetal movements, third trimester, not applicable or unspecified (principal); Z3A.38 38 weeks gestation of pregnancy
CPT/HCPCS: 59025; G0463; 99213

== ENCOUNTER 2021-03-23 10:28 | Inpatient (IN) | payer OTHER ==
[2021-03-23 11:39] LABS: Basophils % (A) 0 %; Eosinophils # (A) 0.1 k/uL (0-0.7); Eosinophils % (A) 1 %; HCT 32.9 % (34.0-46.0); HGB 10.7 gm/dL (11.4-16.0); Hypochromasia Slight; Lymphocytes # (A) 1.1 k/uL (1.0-4.8); Lymphocytes % (A) 12 %; MCH 28.5 pg (25.0-35.0); MCHC 32.7 g/dL (31.0-37.0); MCV 87.1 fL (80.0-100.0); Mean Platelet Volume 8.2; Monocytes # (A) 0.5 k/uL (0-1.0); Monocytes % (A) 5 %; Neutrophils # (A) 7.4 k/uL (1.3-7.7); Neutrophils % (A) 81 %; Platelet Count 330 k/uL (150-450); RBC 3.77 m/uL (3.80-5.40); RDW 14.1 % (11.5-15.5); WBC 9.2 k/uL (3.8-10.6)
[2021-03-23 11:46] LABS: Appearance,Urine Cloudy (Clear); Bacteria,Urine Occasional /hpf; Bilirubin,Urine Negative (Negative); Blood,Urine Large (Negative); Color,Urine Yellow; Glucose,Urine (UA) Negative (Negative); Ketones,Urine Negative (Negative); Leukocyte Esterase,Urine Small (Negative); Mucus,Urine Rare /hpf; Nitrite,Urine Negative (Negative); PH, Urine 6.5 (5.0-8.0); Protein,Urine Trace (Negative); RBC,Urine 123 /hpf (0-5); Specific Gravity,Urine 1.018 (1.001-1.035); Squamous Epithelial Cell,Urine 3 /hpf (0-4); Urobilinogen,Urine <2.0 mg/dL (<2.0); WBC,Urine 4 /hpf (0-5)
[2021-03-23 11:58] LABS: ALT 9 U/L (4-34); AST 19 U/L (14-36); African American GFR (CKD) >90 (>60 ml/min/1.73 sqM); Blood Urea Nitrogen 10 mg/dL (7-17); LDH 364 U/L (313-618); Non-African American GFR(CKD) >90 (>60 ml/min/1.73 sqM); Uric Acid 4.8 mg/dL (3.7-7.4)
[2021-03-23 12:00] LABS: Creatinine,Urine Random 99.8 mg/dL; Protein/Creatinine Ratio,Urine 0.251
[2021-03-23] MEDS ORDERED: OXYTOCIN 10 UNIT/ML 1 ML VIAL IM PRN (12:31)
[2021-03-23] MEDS ORDERED: METHYLERGONOVINE 0.2 MG/ML 1 ML AMP IM PRN (12:31)
[2021-03-23] MEDS ORDERED: CARBOPROST TROMETHAMINE 250 MCG/ML 1 ML AMP IM PRN (12:31)
[2021-03-23] MEDS ORDERED: TERBUTALINE 1 MG/ML VIAL SQ PRN (12:31)
[2021-03-23] MEDS ORDERED: LIDOCAINE 0.5% (PF) 5 MG/ML (50 ML SDV) SQ PRN (12:31)
[2021-03-23] MEDS ORDERED: OXYTOCIN 30 UNITS/500 ML NS 30 UNIT in SALINE 1 500ML.BAG IV SCH (12:45)
[2021-03-23 13:05] LABS: INR 0.8 (<1.2); Partial Thromboplastin Time 21.2 sec (22.0-30.0); Prothrombin Time 9.3 sec (9.0-12.0)
[2021-03-23] MEDS: LACTATED RINGERS 1,000 ML IV SCH (13:10)
[2021-03-23] MEDS ORDERED: BUTORPHANOL 1 MG/ML 1 ML VIAL IV PRN (16:26)
[2021-03-23] MEDS ORDERED: SODIUM CHLORIDE 0.9% 100 ML BAG ONE (19:21)
[2021-03-23] MEDS ORDERED: fentaNYL (PF) 50 MCG/ML 5 ML AMP ONE (19:21)
[2021-03-23] MEDS ORDERED: ROPIVACAINE 5MG/ML 20ML VIAL ONE (19:21)
[2021-03-24] MEDS ORDERED: diphenhydrAMINE 50 MG CAP PO PRN (03:14)
[2021-03-24] MEDS ORDERED: SIMETHICONE 80 MG CHEWABLE PO PRN (03:14)
[2021-03-24] MEDS ORDERED: LANOLIN CREAM 5 GM TUBE TOPICAL PRN (03:14)
[2021-03-24] MEDS ORDERED: HYDROCORTISONE 2.5% RECTAL CREAM 30 GM TUBE RECTAL PRN (03:14)
[2021-03-24] MEDS ORDERED: diphenhydrAMINE 50 MG/ML 1 ML VIAL IVP PRN ×2 (03:14)
[2021-03-24] MEDS ORDERED: ZOLPIDEM 5 MG TAB PO PRN (03:14)
[2021-03-24] MEDS ORDERED: diphenhydrAMINE 25 MG CAP PO PRN (03:14)
[2021-03-24] MEDS ORDERED: BENZOCAINE/MENTHOL SPRAY 1 GM/SPRAY AEROSOL TOPICAL PRN (03:14)
--- NOTE | 2021-03-24 03:18 | P.HPOB ---
History of Present Illness H&P Date: 03/24/21 Chief Complaint: uterine at term: Gestational hypertension patient is a 25-year-old at 38 weeks gestation who arrives to my office for her normal scheduled appointment and was noted to have several elevated blood pressures in the office. Eyes blood pressure is 154/94 she was sent to labor and delivery for preeclamptic labs and monitoring with serial blood pressures. In labor and delivery majority of her blood pressures were normal but she did have one blood pressure 150/90. Due to this finding her being term and having a favorable cervix the decision to induce her was made and artificial rupture membranes was performed with her dilated to 1/2 cm 80% effaced and -2 station. Clear fluid is noted. We will use Pitocin for augmentation of labor and she anticipates use of an epidural for analgesia. The course up until today had been relatively unremarkable although she did have an episode of a rash at approximately 20 weeks that steroid cream didn't seem to improve and initially she had some very mild hydronephrosis on the ultrasound of the fetus that resolved. Otherwise she did have gastroesophageal reflux for which Nexium was prescribed. Pertinent labs include B+ blood type, Rh antibody was negative, rubella is immune, hepatitis B surface antigen was negative and RPR was negative group B strep was also negative. We had a category 1 heart rate tracing and will move forward with induction process. Past Medical History Past Medical History: No Reported History History of Any Multi-Drug Resistant Organisms: MRSA Date of last positivie culture/infection: 2008 MDRO Source:: buttock Past Surgical History: Hernia Repair Past Anesthesia/Blood Transfusion Reactions: No Reported Reaction Past Psychological History: Anxiety Smoking Status: Never smoker Past Alcohol Use History: None Reported Past Drug Use History: None Reported - Past Family History Father Additional Family Medical History / Comment(s): blood clot in paternal grandmother Medications and Allergies Home Medications Medication Instructions Recorded Confirmed Type No Known Home Medications 03/23/21 03/23/21 History Allergies Allergy/AdvReac Type Severity Reaction Status Date / Time No Known Allergies Allergy Verified 03/23/21 10:53 Exam Osteopathic Statement: *. No significant issues noted on an osteopathic structural exam other than those noted in the History and Physical/Consult. Vital Signs Temp Pulse Resp BP Pulse Ox 03/23/21 12:20 97.7 F 100 16 139/92 03/23/21 12:07 98.2 F 99 16 127/86 98 Intake and Output 03/23/21 03/23/21 03/24/21 14:59 22:59 06:59 Other: # Voids 2 2 Weight 73.482 kg Results Result Diagrams: 03/23/21 11:15 03/23/21 11:15 Abnormal Lab Results - Last 24 Hours (Table) 03/23/21 03/23/21 03/23/21 Range/Units 11:15 11:15 11:20 RBC 3.77 L (3.80-5.40) m/uL Hgb 10.7 L (11.4-16.0) gm/dL Hct 32.9 L (34.0-46.0) % APTT 21.2 L (22.0-30.0) sec Urine Appearance Cloudy H (Clear) Urine Protein Trace H (Negative) Urine Blood Large H (Negative) Ur Leukocyte Esterase Small H (Negative) Urine RBC 123 H (0-5) /hpf Urine Bacteria Occasional H (None) /hpf Urine Mucus Rare H (None) /hpf
--- NOTE | 2021-03-24 03:20 | P.PROBDLV ---
Vaginal Delivery Note - . Vaginal Delivery Note: patient progressed complete and pushing with spontaneous vaginal delivery of a viable female over an intact perineum. Following delivery of the head from left occiput anterior position and the shoulders were delivered initially downward traction was used but as she was not able to push adequately to safely and easily bring the shoulders down I did affect the posterior shoulder delivery with counterclockwise rotation and easily was able to deliver the baby once that was accomplished. Once baby was delivered mouth nares were bulb suctioned and baby was placed on mother's abdomen where the umbilical cord was allowed to pulsate for 30 seconds prior to clamping and cutting. Nursery personnel was present and assumed care. Placenta was then delivered intact and Pitocin was added to the IV. Very small avulsion noted on the right vagina but no bleeding is noted and no repair is done. scores were 9 and 9 at one and 5 minutes respectively and the weight was 7 pounds and 7 ounces. Both mother and baby are stable following delivery.
[2021-03-24] MEDS: IBUPROFEN 600 MG TAB PO SCH ×3 (07:37→20:09)
[2021-03-24] MEDS: SENNOSIDES-DOCUSATE SODIUM 1 EACH TAB PO SCH ×2 (07:38→20:09)
[2021-03-24] MEDS: LACTATED RINGERS 1,000 ML IV SCH (08:19)
[2021-03-24] MEDS: ACETAMINOPHEN TAB 325 MG TAB PO PRN (16:24)
[2021-03-24 16:45] VITALS: RESP 16
[2021-03-25] MEDS: ACETAMINOPHEN TAB 325 MG TAB PO PRN (00:12)
[2021-03-25] MEDS: LACTATED RINGERS 1,000 ML IV SCH ×2 (03:24→03:28)
[2021-03-25] MEDS: IBUPROFEN 600 MG TAB PO SCH ×2 (03:25→07:26)
[2021-03-25] MEDS: SENNOSIDES-DOCUSATE SODIUM 1 EACH TAB PO SCH (07:26)
--- NOTE | 2021-03-25 08:24 | P.DS ---
Providers Date of admission: 03/23/21 12:17 Expected date of discharge: 03/25/21 Attending physician: Donn Gomez Primary care physician: Stated None Hospital Course: Maria E is doing very well post day 1. She is ambulating she is voiding and she is tolerating her diet. She voices no complaints and is requesting discharge home today. Vital signs are stable and afebrile. Heart is regular lungs are clear abdomen soft. Vital signs are stable and afebrile. Her tremors are without pain. She reports her lochia is being light and her uterus is firm below the umbilicus. Assessment day 1. Plan discharged home follow up with me in 6 weeks. Prescription for Motrin is provided as well. She is stable for discharge this time. Patient Condition at Discharge: Good Plan - Discharge Summary New Discharge Prescriptions: New Ibuprofen [Motrin] 600 mg PO Q6HR PRN #30 tab PRN Reason: Pain Discharge Medication List Ibuprofen [Motrin] 600 mg PO Q6HR PRN #30 tab 03/25/21 [Rx] Follow up Appointment(s)/Referral(s): Donn Gomez DO [Doctor of Osteopathic Medicine] - 05/04/21 2:30 pm Activity/Diet/Wound Care/Special Instructions: No heavy lifting, limit stairs and driving, and pelvic rest. If any high temperatures, heavy bleeding, or severe pain call my office Discharge Disposition: HOME SELF-CARE
[2021-03-25 09:03] VITALS: BP 114/84; PULSE 84; TEMP 98.5
== END 2021-03-25 11:20 | disposition home or self-care (01) | DRG 807 ==
LOC: FBPOP 10:28 → 4FBP 12:17
PROVIDERS: ADMIT Obstetrics & Gynecology; ATTEND Obstetrics & Gynecology
PROC: 10E0XZZ Delivery of Products of Conception, External Approach (ICD-10-PCS; principal; 2021-03-24)
DX: O13.4 Gestational [pregnancy-induced] hypertension without significant proteinuria, complicating childbirth (principal); Z37.0 Single live birth; F41.9 Anxiety disorder, unspecified; K21.9 Gastro-esophageal reflux disease without esophagitis; O99.344 Other mental disorders complicating childbirth; O99.62 Diseases of the digestive system complicating childbirth; Z3A.38 38 weeks gestation of pregnancy
CPT/HCPCS: 59025; 81001; 82565; 82570; 83615; 84112; 84156; 84450; 84460; 84520; 84550; 85025; 85610; 85730; 86850; 86900; 86901; 88307; 88313; 99213

== ENCOUNTER → 2022-04-17 | Outpatient (CLI) | payer OTHER ==
--- NOTE | 2022-04-17 11:00 | US ---
EXAMINATION TYPE: Transabdominal DATE OF EXAM: 04/17/2022 10:14 AM COMPARISON: NONE CLINICAL HISTORY: Z3A.08 R10.2. Positive beta-hCG test. EXAM PERFORMED: Transabdominal (TA) EXAM MEASUREMENTS: GESTATIONAL AGE / DATING Physician Established: Not yet established Dates by LMP: (8 weeks/ 4 days) EDC: 11-23-2022 Dates by First Scan: No previous this is first scan Dates by Current Scan for: (7 weeks/5 days) EDC: 11-29-22 MATERNAL ANATOMY Uterus: 10.1 x 6.5 x 5.8cm Right Ovary: 2.7 x 1.4 x 1.6cm Left Ovary: 2.3 x 2.1 x 2.1cm Post CDS / Adnexa: wnl Presence of free fluid: no Subchorionic bleed measuring 1.8 x 0.5 x 1.5cm GESTATION / SURVEY CRL: 1.4cm (7 weeks/5 days) Yolk Sac (normal less than 6mm): 2mm Heart Rate: 153 bpm Rhythm: Normal IUP: Viable IUP Date of LMP: Single live intrauterine gestation is confirmed there is gestational sac, yolk sac, and pole ar e seen. No free fluid. Small curvilinear fluid collection could reflect implantation bleed measuring 1.8 x 0.5 x 1.5 cm adjacent to gestational sac. Both ovaries are seen. No suspicious adnexal masses are noted. IMPRESSION: Single live intrauterine gestation. Mean crown-rump length 1.4 cm corresponding to 7 week 5 day old fetus.
== END | disposition home or self-care (01) ==
LOC: RADUSWWP 09:40
PROVIDERS: ATTEND Internal Medicine
DX: Z36.89 Encounter for other specified antenatal screening (principal); R10.2 Pelvic and perineal pain; Z3A.08 8 weeks gestation of pregnancy
CPT/HCPCS: 76801

== ENCOUNTER 2022-06-27 10:48 | Emergency (ER) | payer OTHER ==
[2022-06-27] MEDS ORDERED: ONDANSETRON 4 MG/2 ML VIAL IVP STA (12:10)
[2022-06-27] MEDS ORDERED: ACETAMINOPHEN IV (For NPO) 500 MG in EMPTY BAG 1 BAG IVPB STA (12:16)
[2022-06-27 12:24] LABS: Basophils % (A) 0 %; Eosinophils % (A) 0 %; HGB 12.1 gm/dL (11.4-16.0); Lymphocytes # (A) 0.5 k/uL (1.0-4.8); Lymphocytes % (A) 4 %; MCH 29.7 pg (25.0-35.0); MCHC 33.6 g/dL (31.0-37.0); MCV 88.5 fL (80.0-100.0); Mean Platelet Volume 7.3; Monocytes # (A) 0.3 k/uL (0-1.0); Monocytes % (A) 2 %; Neutrophils # (A) 13.7 k/uL (1.3-7.7); Neutrophils % (A) 94 %; Platelet Count 265 k/uL (150-450); RBC 4.07 m/uL (3.80-5.40); RDW 13.3 % (11.5-15.5); WBC 14.7 k/uL (3.8-10.6)
--- NOTE | 2022-06-27 12:24 | ED ---
Nausea/Vomiting/Diarrhea HPI - General Chief complaint: Nausea/Vomiting/Diarrhea Stated complaint: 19wks vomiting Time Seen by Provider: 06/27/22 12:09 Source: patient Mode of arrival: ambulatory Limitations: no limitations - History of Present Illness Initial comments: Patient is a A1 female at 19 weeks who presents to the ED for v omiting. It started yesterday. Patient states she has little ability to tolerate oral intake. Patient also has mild generalized abdominal cramping with a few episodes of diarrhea, nonbloody. She denies fever, chills, cold-like symptoms, vaginal bleeding, burning with urination, vaginal discharge. Patient has had a normal ultrasound for this . Her OB is Dr. Gallegos - Related Data Previous Rx's Medication Instructions Recorded Cephalexin [Keflex] 250 mg PO Q6HR #20 cap 06/27/22 Allergies Allergy/AdvReac Type Severity Reaction Status Date / Time No Known Allergies Allergy Verified 06/27/22 12:20 Review of Systems ROS Statement: Those systems with pertinent positive or pertinent negative responses have been documented in the HPI. ROS Other: All systems not noted in ROS Statement are negative. Past Medical History Past Medical History: No Reported History History of Any Multi-Drug Resistant Organisms: MRSA Date of last positivie culture/infection: 2008 MDRO Source:: buttock Past Surgical History: Hernia Repair Past Anesthesia/Blood Transfusion Reactions: No Reported Reaction Past Psychological History: Anxiety Smoking Status: Never smoker Past Alcohol Use History: None Reported Past Drug Use History: None Reported - Past Family History Father Additional Family Medical History / Comment(s): blood clot in paternal grandmother General Exam Limitations: no limitations Course Vital Signs 06/27/22 06/27/22 11:11 12:14 Temperature 98.3 F Pulse Rate 100 101 H Respiratory 20 18 Rate Blood Pressure 104/72 103/67 O2 Sat by Pulse 99 99 Oximetry Medical Decision Making - Medical Decision Making Was pt. sent in by a medical professional or institution ([facility], LEGAL [employer], urgent care, hospital, or detention...) When possible be specific @ -No Did you speak to anyone other than the patient for history (EMS, parent, family, police, friend...)? What history was obtained from this source @ -No Did you review nursing and triage notes (agree or disagree)? Why? @ -I reviewed and agree with nursing and triage notes Were old charts reviewed (outside hosp., previous admission, EMS record, old EKG, old radiological studies, urgent care reports/EKG's, detention records)? Report findings @ -No old charts were reviewed Differential Diagnosis (chest pain, altered mental status, abdominal pain women, abdominal pain men, vaginal bleeding, weakness, fever, dyspnea, syncope, headac he, dizziness, GI bleed, back pain, seizure, CVA, palpatations, mental health)? @ -Differential Abdominal Pain Women: Appendicitis, Cholecystitis, diverticulosis, ischemic bowel, pancreatitis, hepatitis, UTI, gastroenteritis, AAA, incarcerated hernia, bowel obstruction, constipation, inflammatory bowel, hepatitis, peptic ulcer disease, splenic infarction, perforated viscus, vulvitis, ovarian torsion, PID, kidney stone, placenta abruption, this is not meant to be an all-inclusive list EKG interpreted by me (3pts min.). @ -As above X-rays interpreted by me (1pt min.). @ -None done CT interpreted by me (1pt min.). @ -None done U/S interpreted by me (1pt. min.). @ -No. Report shows a viable IUP What testing was considered but not performed or refused? (CT, X-rays, U/S, labs)? Why? @ -None What meds were considered but not given or refused? Why? @ -None Did you discuss the management of the patient with other professionals ( professionals i.e. , PA, LEGAL AID, lab, RT, psych nurse, social insurance analyst, apprentice cook, teacher, chief legal officer, top case assembler)? Give summary @ -No Was smoking cessation discussed for >3mins.? @ -No Was critical care preformed (if so, how long)? @ -No Were there social determinants of health that impacted care today? How? (Homelessness, low income, unemployed, alcoholism, drug addiction, transpo rtation, low edu. Level, literacy, decrease access to med. care, custodial, rehab)? @ -No Was there de-escalation of care discussed even if they declined (Discuss DNR or withdrawal of care, Hospice)? DNR status @ -No What co-morbidities impacted this encounter? (DM, HTN, Smoking, COPD, CAD, Cancer, CVA, ARF, Chemo, Hep., AIDS, mental health diagnosis, sleep apnea, morbid obesity)? @ -None Was patient admitted / discharged? Hospital course, mention meds given and route, prescriptions, significant lab abnormalities, going to OR and other pertinent info. @ -Patient presenting for nausea and vomiting during her second trimester . No vaginal bleeding. Afebrile. Laboratory studies obtained. There is leukocytosis of 14.7, likely reactive. Quantitative beta-hCG is appropriate for gestational age. Urinalysis reveals dehydration and rare bacteria although it is contaminated by 22 squamous cells. Patient asymptomatic. ultrasound shows a single intrauterine gestation with heart rate at 157 Patient given large fluid bolus and Zofran. She did not have any further episodes of vomiting while in the emergency department. Patient feels significantly better she requests to go home. Patient will be discharged with strict return parameters. Will send home with zofran and keflex. We discussed risks versus benefits of Zofran use. Patient was given a Zofran starter pack. She was also given a prescription of Keflex for asymptomatic bacteriuria in . Undiagnosed new problem with uncertain prognosis? @ -No Drug Therapy requiring intensive monitoring for toxicity (Heparin, Nitro, Ins ulin, Cardizem)? @ -No Were any procedures done? @ -No Diagnosis/symptom? @ -nausea and vomiting in Acute, or Chronic, or Acute on Chronic? @ -acute Uncomplicated (without systemic symptoms) or Complicated (systemic symptoms)? @ -uncomplicated Side effects of treatment? @ -No Exacerbation, Progression, or Severe Exacerbation? @ -No Poses a threat to life or bodily function? How? (Chest pain, [place], [place], pneumonia, PE, COPD, DKA, ARF, appy, cholecystitis, CVA, Diverticulitis, Homicidal, Suicidal, threat to staff... and all critical care pts) @ -No Dr. Richey is my attending. - Lab Data Result diagrams: 06/27/22 11:52 06/27/22 11:52 Lab Results 06/27/22 06/27/22 06/27/22 Range/Units 11:52 11:52 11:52 WBC 14.7 H (3.8-10.6) k/uL RBC 4.07 (3.80-5.40) m/uL Hgb 12.1 (11.4-16.0) gm/dL Hct 36.0 (34.0-46.0) % MCV 88.5 (80.0-100.0) fL MCH 29.7 (25.0-35.0) pg MCHC 33.6 (31.0-37.0) g/dL RDW 13.3 (11.5-15.5) % Plt Count 265 (150-450) k/uL MPV 7.3 Neutrophils % 94 % Lymphocytes % 4 % Monocytes % 2 % Eosinophils % 0 % Basophils % 0 % Neutrophils # 13.7 H (1.3-7.7) k/uL Lymphocytes # 0.5 L (1.0-4.8) k/uL Monocytes # 0.3 (0-1.0) k/uL Eosinophils # 0.0 (0-0.7) k/uL Basophils # 0.0 (0-0.2) k/uL Sodium 135 L (137-145) mmol/L Potassium 3.8 (3.5-5.1) mmol/L Chloride 105 (98-107) mmol/L Carbon Dioxide 21 L (22-30) mmol/L Anion Gap 9 mmol/L BUN 11 (7-17) mg/dL Creatinine 0.54 (0.52-1.04) mg/dL Est GFR (CKD-EPI)AfAm >90 (>60 ml/min/1.73 sqM) Est GFR (CKD-EPI)NonAf >90 (>60 ml/min/1.73 sqM) Glucose 81 (74-99) mg/dL Calcium 8.3 L (8.4-10.2) mg/dL Total Bilirubin 0.5 (0.2-1.3) mg/dL AST 26 (14-36) U/L ALT 14 (4-34) U/L Alkaline Phosphatase 51 (38-126) U/L Total Protein 7.0 (6.3-8.2) g/dL Albumin 4.0 (3.5-5.0) g/dL Amylase 70 (30-110) U/L Lipase 75 (23-300) U/L HCG, Quant 8508.0 mIU/mL Urine Color Yellow Urine Appearance Cloudy H (Clear) Urine pH 6.0 (5.0-8.0) Ur Specific Mobile 1.029 (1.001-1.035) Urine Protein Trace H (Negative) Urine Glucose (UA) Negative (Negative) Urine Ketones 3+ H (Negative) Urine Blood Negative (Negative) Urine Nitrite Negative (Negative) Urine Bilirubin Negative (Negative) Urine Urobilinogen <2.0 (<2.0) mg/dL Ur Leukocyte Esterase Moderate H (Negative) Urine RBC 1 (0-5) /hpf Urine WBC 7 H (0-5) /hpf Ur Squamous Epith Cells 22 H (0-4) /hpf Urine Bacteria Rare H (None) /hpf Urine Mucus Many H (None) /hpf Influenza Type A RNA (Not Detectd) Influenza Type B (PCR) (Not Detectd) 06/27/22 Range/Units 12:55 WBC (3.8-10.6) k/uL RBC (3.80-5.40) m/uL Hgb (11.4-16.0) gm/dL Hct (34.0-46.0) % MCV (80.0-100.0) fL MCH (25.0-35.0) pg MCHC (31.0-37.0) g/dL RDW (11.5-15.5) % Plt Count (150-450) k/uL MPV Neutrophils % % Lymphocytes % % Monocytes % % Eosinophils % % Basophils % % Neutrophils # (1.3-7.7) k/uL Lymphocytes # (1.0-4.8) k/uL Monocytes # (0-1.0) k/uL Eosinophils # (0-0.7) k/uL Basophils # (0-0.2) k/uL Sodium (137-145) mmol/L Potassium (3.5-5.1) mmol/L Chloride (98-107) mmol/L Carbon Dioxide (22-30) mmol/L Anion Gap mmol/L BUN (7-17) mg/dL Creatinine (0.52-1.04) mg/dL Est GFR (CKD-EPI)AfAm (>60 ml/min/1.73 sqM) Est GFR (CKD-EPI)NonAf (>60 ml/min/1.73 sqM) Glucose (74-99) mg/dL Calcium (8.4-10.2) mg/dL Total Bilirubin (0.2-1.3) mg/dL AST (14-36) U/L ALT (4-34) U/L Alkaline Phosphatase (38-126) U/L Total Protein (6.3-8.2) g/dL Albumin (3.5-5.0) g/dL Amylase (30-110) U/L Lipase (23-300) U/L HCG, Quant mIU/mL Urine Color Urine Appearance (Clear) Urine pH (5.0-8.0) Ur Specific Mobile (1.001-1.035) Urine Protein (Negative) Urine Glucose (UA) (Negative) Urine Ketones (Negative) Urine Blood (Negative) Urine Nitrite (Negative) Urine Bilirubin (Negative) Urine Urobilinogen (<2.0) mg/dL Ur Leukocyte Esterase (Negative) Urine RBC (0-5) /hpf Urine WBC (0-5) /hpf Ur Squamous Epith Cells (0-4) /hpf Urine Bacteria (None) /hpf Urine Mucus (None) /hpf Influenza Type A RNA Not Detected (Not Detectd) Influenza Type B (PCR) Not Detected (Not Detectd) Disposition Clinical Impression: Asymptomatic bacteriuria, Nausea and vomiting during Disposition: HOME SELF-CARE Condition: Good Instructions (If sedation given, give patient instructions): Nausea and Vomiting in (ED), Urinary Tract Infection in (ED) Additional Instructions: Increase fluid intake as tolerated. Take medication as directed. Follow-up with diver tender in 1-2 days. Return to the emergency department experience new, concerning, or worsening symptoms. Prescriptions: Cephalexin [Keflex] 250 mg PO Q6HR #20 cap Is patient prescribed a controlled substance at d/c from ED?: No Referrals: Lupillo Johnson MD [Primary Care Provider] - 1-2 days
[2022-06-27 12:27] LABS: Appearance,Urine Cloudy (Clear); Bacteria,Urine Rare /hpf; Bilirubin,Urine Negative (Negative); Blood,Urine Negative (Negative); Color,Urine Yellow; Glucose,Urine (UA) Negative (Negative); Ketones,Urine 3+ (Negative); Leukocyte Esterase,Urine Moderate (Negative); Mucus,Urine Many /hpf; Nitrite,Urine Negative (Negative); Protein,Urine Trace (Negative); RBC,Urine 1 /hpf (0-5); Specific Gravity,Urine 1.029 (1.001-1.035); Squamous Epithelial Cell,Urine 22 /hpf (0-4); Urobilinogen,Urine <2.0 mg/dL (<2.0); WBC,Urine 7 /hpf (0-5)
[2022-06-27] MEDS ORDERED: CEPHALEXIN 250 MG CAP PO STA (12:47)
[2022-06-27] MEDS ORDERED: SODIUM CHLORIDE 0.9% 2,000 ML IV STA (12:59)
--- NOTE | 2022-06-27 13:02 | US ---
EXAMINATION TYPE: US OB >= 14 wk fetus DATE OF EXAM: 06/27/2022 COMPARISON: None CLINICAL HISTORY: cramping vomiting 19 weeks TECHNIQUE: Transabdominal (TA) GESTATIONAL AGE / DATING Physician Established: (18 weeks/5 days) EDC: 11/23/2022 Dates by LMP: (18 weeks/5 days) EDC: 11/23/2022 Dates by First Scan: (17 weeks/6 days) EDC: 11/29/2022 Dates by Current Scan: (18 weeks/0 days) EDC: 11/28/2022 SURVEY IUP: Single PLACENTA: Posterior PREVIA: No Previa SUNNY: 12.6 cm Normal CERVICAL LENGTH (transabdominal: norm > 3.0cm): 3.2 cm BIOMETRY PRESENTATION: Vertex BPD: 4.0 cm 18 weeks / 2 days HC: 14.9 cm 18 weeks / 0 days AC: 12.6 cm 18 weeks / 1 days FL: 2.6 cm 17 weeks / 6 days ESTIMATED WEIGHT IN GRAMS: 220 grams ESTIMATED WEIGHT IN LBS/OZ: 0 lbs. 8 oz. WEIGHT PERCENTAGE BASED ON ESTABLISHED DATES: 12.9% HC/AC: 1.18 Normal FL/AC: 21 Normal HEART RATE: 157 bpm RHYTHM: Normal Single, IUP/ No abnormality visualized at this time IMPRESSION: 1. Single intrauterine gestation estimated at 18 weeks 0 days gestation based on current ultrasound m easurements. This had a calculated EDC of 11/28/2022. Correlate this with the patient established EDC of 11/23/2022. 2. Cardiac activity measures 157 bpm.
[2022-06-27 13:05] LABS: ALT 14 U/L (4-34); AST 26 U/L (14-36); African American GFR (CKD) >90 (>60 ml/min/1.73 sqM); Alkaline Phosphatase 51 U/L (38-126); Amylase 70 U/L (30-110); Anion Gap 9 mmol/L; Blood Urea Nitrogen 11 mg/dL (7-17); Calcium 8.3 mg/dL (8.4-10.2); Carbon Dioxide 21 mmol/L (22-30); Chloride 105 mmol/L (98-107); Glucose 81 mg/dL (74-99); Lipase 75 U/L (23-300); Non-African American GFR(CKD) >90 (>60 ml/min/1.73 sqM); Potassium 3.8 mmol/L (3.5-5.1); Sodium 135 mmol/L (137-145); Total Bilirubin 0.5 mg/dL (0.2-1.3)
[2022-06-27] MEDS ORDERED: ONDANSETRON 4 MG ODT STARTER PACK 2 TAB BTL PO STA (14:09)
[2022-06-27 15:11] VITALS: BP 95/65; PULSE 97; RESP 19; TEMP 98
== END 2022-06-27 15:10 | disposition home or self-care (01) ==
LOC: EC 10:48
DX: O21.9 Vomiting of pregnancy, unspecified (principal); O23.42 Unspecified infection of urinary tract in pregnancy, second trimester; R82.71 Bacteriuria; Z3A.19 19 weeks gestation of pregnancy
CPT/HCPCS: 36415; 80053; 82150; 83690; 85025; 81001; 84702; 87502; 76805; 99284; 96374; 96375; 96361 ×2; J2405; J0131; S0119

== ENCOUNTER → 2023-02-05 | Outpatient (CLI) | payer OTHER ==
[2023-02-05 16:12] LABS: Basophils # (A) 0.03 X 10*3/uL (0.00-0.10); Basophils % (A) 0.6 %; Eosinophils # (A) 0.13 X 10*3/uL (0.04-0.35); Eosinophils % (A) 2.4 %; HCT 40.5 % (37.2-46.3); HGB 13.1 d/dL (12.0-15.0); Lymphocytes # (A) 1.78 X 10*3/uL (0.90-5.00); Lymphocytes % (A) 33.2 %; MCH 29.1 pg (27.0-32.0); MCHC 32.3 d/dL (32.0-37.0); Mean Platelet Volume 9.5 FL (9.5-12.2); Monocytes # (A) 0.44 X 10*3/uL (0.20-1.00); Monocytes % (A) 8.2 %; NRBC Per 100 WBC 0 X 10*3/uL (0.00-0.01); Neutrophils # (A) 2.96 X 10*3/uL (1.80-7.70); Neutrophils % (A) 55.2 %; Platelet Count 435 X 10*3/uL (140-440); RDW 12.8 % (11.5-14.5); WBC 5.36 X 10*3/uL (4.50-10.00)
== END | disposition home or self-care (01) ==
LOC: LABWHC1 11:49
PROVIDERS: ATTEND Internal Medicine
DX: O02.1 Missed abortion (principal); Z3A.00 Weeks of gestation of pregnancy not specified
CPT/HCPCS: 36415; 84702; 85025; 86900; 86901

== ENCOUNTER 2023-09-28 00:21 | Emergency (ER) | payer OTHER ==
[2023-09-28] MEDS: MORPHINE SULFATE 4 MG/ML SYRINGE IV STA (00:34)
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
[2023-09-28 01:01] LABS: Basophils % (A) 0 %; Eosinophils # (A) 0.1 k/uL (0-0.7); Eosinophils % (A) 2 %; HCT 44.9 % (34.0-46.0); Lymphocytes # (A) 1.6 k/uL (1.0-4.8); Lymphocytes % (A) 22 %; MCH 28.5 pg (25.0-35.0); MCHC 31.2 g/dL (31.0-37.0); MCV 91.1 fL (80.0-100.0); Mean Platelet Volume 7.1; Monocytes # (A) 0.4 k/uL (0-1.0); Monocytes % (A) 5 %; Neutrophils # (A) 5.2 k/uL (1.3-7.7); Neutrophils % (A) 70 %; Platelet Count 402 k/uL (150-450); RBC 4.93 m/uL (3.80-5.40); RDW 13.5 % (11.5-15.5); WBC 7.5 k/uL (3.8-10.6)
[2023-09-28 01:13] LABS: ALT 11 U/L (4-34); AST 27 U/L (14-36); African American GFR (CKD) >90 (>60 ml/min/1.73 sqM); Albumin 5.4 g/dL (3.5-5.0); Alcohol 24 mg/dL; Alkaline Phosphatase 55 U/L (38-126); Anion Gap 14 mmol/L; Blood Urea Nitrogen 17 mg/dL (7-17); Carbon Dioxide 16 mmol/L (22-30); Chloride 110 mmol/L (98-107); Glucose 86 mg/dL (74-99); INR 0.9 (<1.2); Non-African American GFR(CKD) >90 (>60 ml/min/1.73 sqM); Potassium 3.7 mmol/L (3.5-5.1); Prothrombin Time 10.5 sec (10.0-12.5); Sodium 140 mmol/L (137-145); Total Bilirubin 0.3 mg/dL (0.2-1.3); Total Protein 8.6 g/dL (6.3-8.2)
[2023-09-28 01:15] LABS: Partial Thromboplastin Time 20.9 sec (22.0-30.0)
[2023-09-28] MEDS: HYDROmorphone 1 MG/ML 1 ML SYRINGE IVP STA ×3 (01:27→03:33)
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
[2023-09-28] MEDS: ONDANSETRON 4 MG/2 ML VIAL IVP STA (05:30)
[2023-09-28 05:35] VITALS: TEMP 98
[2023-09-28 05:38] VITALS: BP 112/78; PULSE 80; RESP 24
== END 2023-09-28 06:05 | disposition other institution (70) ==
LOC: EC 00:21
DX: S42.402A Unspecified fracture of lower end of left humerus, initial encounter for closed fracture (principal); Z98.890 Other specified postprocedural states; V86.55XA Driver of 3- or 4- wheeled all-terrain vehicle (ATV) injured in nontraffic accident, initial encounter
CPT/HCPCS: 99285; 29105; 96374; 96375 ×2; 96376 ×2; 36415; 93005; 86900; 86901; 80053; 84484; 85025; 85610; 85730; 86850; 72170; 73030; 73060; 73130; 71045; 72125; 70450; 71260; 74177; G0480; J2270; J2405; J1170; Q9967; 80320

== ENCOUNTER 2023-10-03 13:57 | Emergency (ER) | payer OTHER ==
[2023-10-03 14:04] VITALS: RESP 18
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
[2023-10-03 15:04] LABS: Basophils % (A) 0 %; Eosinophils # (A) 0.1 k/uL (0-0.7); Eosinophils % (A) 2 %; HCT 34.1 % (34.0-46.0); Lymphocytes # (A) 1.4 k/uL (1.0-4.8); Lymphocytes % (A) 19 %; MCH 28.9 pg (25.0-35.0); MCV 90.4 fL (80.0-100.0); Mean Platelet Volume 7.1; Monocytes # (A) 0.3 k/uL (0-1.0); Monocytes % (A) 4 %; Neutrophils # (A) 5.5 k/uL (1.3-7.7); Neutrophils % (A) 74 %; Platelet Count 459 k/uL (150-450); RBC 3.78 m/uL (3.80-5.40); RDW 13.4 % (11.5-15.5); WBC 7.5 k/uL (3.8-10.6)
[2023-10-03 15:12] LABS: HGB 10.9 gm/dL (11.4-16.0)
[2023-10-03 15:15] LABS: ALT 12 U/L (4-34); AST 27 U/L (14-36); African American GFR (CKD) >90 (>60 ml/min/1.73 sqM); Albumin 4.5 g/dL (3.5-5.0); Alkaline Phosphatase 50 U/L (38-126); Anion Gap 7 mmol/L; Blood Urea Nitrogen 17 mg/dL (7-17); Calcium 9.1 mg/dL (8.4-10.2); Carbon Dioxide 24 mmol/L (22-30); Chloride 106 mmol/L (98-107); Glucose 91 mg/dL (74-99); Non-African American GFR(CKD) >90 (>60 ml/min/1.73 sqM); Potassium 4.5 mmol/L (3.5-5.1); Sodium 137 mmol/L (137-145); Total Bilirubin 0.6 mg/dL (0.2-1.3); Total Protein 7.3 g/dL (6.3-8.2)
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
[2023-10-03 16:15] VITALS: BP 111/75; PULSE 100; TEMP 98.1
== END 2023-10-03 16:16 | disposition home or self-care (01) ==
LOC: EC 13:57
DX: R10.84 Generalized abdominal pain (principal); J90 Pleural effusion, not elsewhere classified; V86.55XA Driver of 3- or 4- wheeled all-terrain vehicle (ATV) injured in nontraffic accident, initial encounter; Y92.410 Unspecified street and highway as the place of occurrence of the external cause
CPT/HCPCS: 99284; 36415; 80053; 83605; 85025; 74177; Q9967

== ENCOUNTER 2024-10-23 14:31 | Outpatient (CLI) | payer OTHER ==
[2024-10-23 15:36] VITALS: BP 120/70; PULSE 108; RESP 18; TEMP 97.6
--- NOTE | 2024-11-02 09:29 | P.MSEPDOC ---
Presenting Problems - Arrival Data Date of Arrival on Unit: 10/23/24 Time of Arrival on Unit: 15:10 Mode of Transport: Ambulatory - Complaint OB-Reason for Admission/Chief Complaint: Rule Out SROM Comment: leaking x1 at 1200 today, nothing since Medical History - Information : 3 Para: 1 Term: 1 : 0 Abortions: Spontaneous or Elective: 0 Number of Living Children: 1 - Gestational Age Gestational Age by JANNETTE (wks/days): 38 Weeks and 2 Days - History Complications: GDM Comment: accu check BID, diet controlled Review of Systems - Review of Systems Constitutional: No problems Breast: No problems ENT: No problems Cardiovascular: No problems Respiratory: No problems Gastrointestinal: No problems Genitourinary: No problems Musculoskeletal: No problems Neurological: No problems Skin: No problems Vital Signs - Temperature Temperature: 97.6 F Temperature Source: Temporal Artery Scan - Pulse Right Sitting Brachial Pulse Rate: 108 Pulse Assessment Method: Pulse Oximetry - Respirations Respiratory Rate: 18 Oxygen Delivery Method: Room Air O2 Sat by Pulse Oximetry: 97 - Blood Pressure Right Arm Sitting Blood Pressure: 120/70 Blood Pressure Mean: 86 Blood Pressure Source: Automatic Cuff Medical Screen Scoring - Cervical Exam Dilation (cm): 1 Effacement (%): 50 Station: -2 - Assessment - Baby A Baseline FHR: 120 Heart Rate - NICHD Category: Category I (Normal) NST: Reactive Physician Notification - Physician Notified Physician Notified Date: 10/23/24 Physician Notified Time: 15:30 Physician: Antonino Starks Order Received: Yes (de home) Maternal Triage Index - Maternal Triage Index Presenting for scheduled procedure w/no complaint: No - Stat/Priority 1 Stat Priority 1: No - Urgent/Priority 2 Urgent Priority 2: No - Prompt/Priority 3 Prompt Priority 3: No - Non-Urgent/Priority 4 Non-Urgent Priority 4: Yes Criteria Met for Priority 4: amnisure neg. Disposition - Disposition OB Disposition: Discharge to home, Written follow up instructions reviewed Discharge Date: 10/23/24 Discharge Time: 15:36 I agree with the RN Medical Screening Exam: Yes Physician's MSE Comment: I have neither seen nor examined the patient. Case reviewed; plan agreed upon as documented in EMR&OBIX.: Yes Diagnosis: RELATED CONDITIONS, UNSPECIFIED, THIRD TRIMESTER
== END 2024-10-23 15:36 | disposition home or self-care (01) ==
LOC: FBPOP 14:31
PROVIDERS: ATTEND Obstetrics & Gynecology
DX: O26.893 Other specified pregnancy related conditions, third trimester (principal); Z3A.38 38 weeks gestation of pregnancy
CPT/HCPCS: 59025; 84112; G0463; 99213

== ENCOUNTER 2024-10-28 05:40 | Inpatient (IN) | payer OTHER ==
[2024-10-28] MEDS ORDERED: CARBOPROST TROMETHAMINE 250 MCG/ML 1 ML AMP IM PRN (06:25)
[2024-10-28] MEDS ORDERED: LIDOCAINE 0.5% (PF) 5 MG/ML (50 ML SDV) SQ PRN (06:25)
[2024-10-28] MEDS ORDERED: METHYLERGONOVINE 0.2 MG/ML 1 ML AMP IM PRN (06:25)
[2024-10-28] MEDS ORDERED: TRANEXAMIC 1,000 MG/100ML-NACL 1,000 MG in EMPTY BAG 1 BAG IV PRN (06:25)
[2024-10-28] MEDS ORDERED: OXYTOCIN 10 UNIT/ML 1 ML VIAL IM PRN (06:25)
[2024-10-28] MEDS ORDERED: TERBUTALINE 1 MG/ML VIAL SQ PRN (06:25)
[2024-10-28] MEDS: LACTATED RINGERS 1,000 ML IV SCH (06:56)
[2024-10-28 06:57] LABS: Glucose,Whole Blood 96 mg/dL (70-110)
[2024-10-28] MEDS: OXYTOCIN 30 UNITS/500 ML NS 30 UNIT in SALINE 1 500ML.BAG IV SCH (06:57)
[2024-10-28 07:05] LABS: Basophils # (A) 0.03 10*3/uL (0.00-0.10); Basophils % (A) 0.3 %; Eosinophils # (A) 0.10 10*3/uL (0.04-0.35); Eosinophils % (A) 1.0 %; HCT 26.7 % (37.2-46.3); HGB 8.4 g/dL (12.0-15.0); Lymphocytes # (A) 1.57 10*3/uL (0.90-5.00); Lymphocytes % (A) 15.7 %; MCH 25.5 pg (27.0-32.0); MCHC 31.5 g/dL (32.0-37.0); MCV 80.9 fL (80.0-97.0); Monocytes # (A) 0.72 10*3/uL (0.20-1.00); Monocytes % (A) 7.2 %; Neutrophils # (A) 7.41 10*3/uL (1.80-7.70); Neutrophils % (A) 73.8 %; Platelet Count 235 10*3/uL (140-440); RBC 3.30 10*6/uL (4.10-5.20); RDW 14.8 % (11.5-14.5); WBC 10.03 10*3/uL (4.50-10.00)
[2024-10-28] MEDS ORDERED: BUTORPHANOL 1 MG/ML 1 ML VIAL IV PRN (08:19)
--- NOTE | 2024-10-28 08:25 | P.HPOB ---
History of Present Illness H&P Date: 10/28/24 Chief Complaint: 39+ weeks, induction The patient is a 29-year-old 6 para 1-0-4-1 admitted at 39+ weeks as established by last menstrual period and confirmed by 12-week ultrasound. She is admitted for elective induction of labor with all signs reassuring, category 1 heart rate tracing. Her has been essentially uncomplicated aside from gestational diabetes for which she has had reassuring weekly testing since 32 weeks with excellent blood sugar control. Group B strep status is negative. Obstetrical history: 6 para 1-0-4-1 with 1 term vaginal delivery without complications. Current statistics are listed in history of present illness. EDC of 11/04/2024 was established by last menstrual period confirmed by 12-week ultrasound. Laboratory workup demonstrates a blood type of B+ with a negative antibody screen. Rubella status is immune. The remainder of the laboratory workup was within normal limits. 1 hour Glucola was elevated and followed by an abnormal 3-hour glucose tolerance test making the diagnosis of gestational diabetes. Group B strep status is negative. Gynecologic history: Unremarkable with no history of any infections to include STDs. Review of Systems Review of systems is confined to history of present illness. Past Medical History Past Medical History: No Reported History History of Any Multi-Drug Resistant Organisms: None Reported, MRSA Date of last positivie culture/infection: 2008 MDRO Source:: buttock Past Surgical History: Hernia Repair, Orthopedic Surgery Past Anesthesia/Blood Transfusion Reactions: No Reported Reaction Past Psychological History: Anxiety Smoking Status: Never smoker Past Alcohol Use History: None Reported Past Drug Use History: None Reported - Past Family History Father Additional Family Medical History / Comment(s): blood clot in paternal grandmother Medications and Allergies Home Medications Medication Instructions Recorded Confirmed Type No Known Home Medications 10/28/24 10/28/24 History Allergies Allergy/AdvReac Type Severity Reaction Status Date / Time No Known Allergies Allergy Verified 10/28/24 06:24 Exam Vital Signs Temp Pulse Resp BP 10/28/24 06:30 97.0 F L 105 H 14 111/72 Intake and Output 10/27/24 10/28/24 10/28/24 22:59 06:59 14:59 Other: Weight 76.204 kg In general, this is a well-developed, well-nourished white female in no acute distress. Her heart has a regular rhythm and rate without murmur. Her lungs are clear to auscultation bilaterally in all leal. Her abdomen is gravid, n ondistended, has normal active bowel sounds, is soft, nontender, and without any palpable masses aside from the uterine fundus. Her extremities are without any cyanosis, clubbing, or edema and are nontender to palpation bilaterally. Digital cervical examination demonstrates her cervix to be approximately 2 cm dilated, 50% effaced, with the vertex and presentation at -2-3 station. Artificial rupture of membranes is carried out demonstrating clear fluid. Results Result Diagrams: 10/28/24 06:20 Abnormal Lab Results - Last 24 Hours (Table) 10/28/24 Range/Units 06:20 WBC 10.03 H (4.50-10.00) 10*3/uL RBC 3.30 L (4.10-5.20) 10*6/uL Hgb 8.4 L (12.0-15.0) g/dL Hct 26.7 L (37.2-46.3) % MCH 25.5 L (27.0-32.0) pg MCHC 31.5 L (32.0-37.0) g/dL Immature Gran # 0.20 H (0.00-0.04) 10*3/uL Assessment and Plan (1) Term Current Visit: Yes Status: Acute Code(s): Z34.90 - ENCNTR FOR SUPRVSN OF NORMAL , UNSP, UNSP TRIMESTER SNOMED Code(s): 44825959 Plan: The patient is admitted for elective induction of labor. She will have close maternal and surveillance and expectant management will be practiced. She is a good candidate for either IV, epidural, or nitrous analgesia, which ever she may choose. Pitocin has been started and she has undergone artificial rupture of membranes.
[2024-10-28] MEDS ORDERED: SODIUM CHLORIDE 0.9% 250 ML BAG ONE (13:51)
[2024-10-28] MEDS ORDERED: fentaNYL (PF) 50 MCG/ML 5 ML AMP ONE (13:51)
[2024-10-28] MEDS ORDERED: ROPIVACAINE 5 MG/ML 30 ML VIAL ONE (13:51)
[2024-10-28] MEDS ORDERED: LANOLIN CREAM 1 GM TUBE TOPICAL PRN (18:14)
[2024-10-28] MEDS ORDERED: HYDROCORTISONE 2.5% RECTAL CREAM 30 GM TUBE RECTAL PRN (18:14)
[2024-10-28] MEDS ORDERED: diphenhydrAMINE 50 MG/ML 1 ML VIAL IVP PRN ×2 (18:14)
[2024-10-28] MEDS ORDERED: BENZOCAINE/MENTHOL SPRAY 1 GM/SPRAY AEROSOL TOPICAL PRN (18:14)
[2024-10-28] MEDS ORDERED: ZOLPIDEM 5 MG TAB PO PRN (18:14)
[2024-10-28] MEDS ORDERED: SIMETHICONE 80 MG CHEWABLE PO PRN (18:14)
[2024-10-28] MEDS ORDERED: diphenhydrAMINE 25 MG CAP PO PRN (18:14)
[2024-10-28] MEDS ORDERED: OXYTOCIN 30 UNITS/500 ML NS 30 UNIT in SALINE 1 500ML.BAG IV SCH (18:15)
--- NOTE | 2024-10-28 18:18 | P.PROBDLV ---
Vaginal Delivery Note - . Vaginal Delivery Note: Date of service/delivery: 10/28/2024 The patient is a 29-year-old 2 para 1-0-0-1 admitted at 39-0/7 weeks by good dating parameters. She is admitted to look for elective induction with all signs reassuring, category 1 heart rate tracing. Her has been essentially uncomplicated and group B strep status is negative. On labor and delivery, she had Pitocin augmentation started and underwent artificial rupture of membranes for clear fluid. She made progress into the active phase of labor and had an epidural catheter placed for analgesia. She then progressed steadily through the active phase of labor to complete and pushed over the course of approximately 10 to 15 minutes to a normal spontaneous vaginal delivery of a viable 8 pound 4 ounce baby boy with Apgars of 8 at 1 minute and 9 at 5 minutes delivered in the left occiput anterior position. The placenta was delivered spontaneously, intact, and grossly normal with a grossly normal three-vessel cord inserted approximately 2 to 3 cm from the margin of the placental disc. There were no lacerations of the perineum, vagina, or cervix. Estimated blood loss for the case was approximately 100 mL. There were no complications. Both mother and are resting comfortably in recovery.
[2024-10-28] MEDS: ONDANSETRON 4 MG/2 ML VIAL IVP STA (19:22)
[2024-10-28] MEDS: ROPIVACAINE 225 MG, fentaNYL (PF). 450 MCG in SODIUM CHLORIDE 0.9% 171 ML EPIDURAL ONE (19:51)
[2024-10-28 20:06] VITALS: RESP 16
[2024-10-28] MEDS: IBUPROFEN 800 MG TAB PO PRN (21:08)
[2024-10-28] MEDS: SENNOSIDES-DOCUSATE SODIUM 1 EACH TAB PO SCH (21:08)
[2024-10-29] MEDS: ACETAMINOPHEN TAB 500 MG TAB PO PRN (03:05)
[2024-10-29 06:26] LABS: Basophils # (A) 0.04 10*3/uL (0.00-0.10); Basophils % (A) 0.2 %; Eosinophils # (A) 0.03 10*3/uL (0.04-0.35); Eosinophils % (A) 0.1 %; HCT 25.6 % (37.2-46.3); HGB 8.2 g/dL (12.0-15.0); Lymphocytes # (A) 1.22 10*3/uL (0.90-5.00); Lymphocytes % (A) 5.5 %; MCH 25.6 pg (27.0-32.0); MCHC 32.0 g/dL (32.0-37.0); MCV 80.0 fL (80.0-97.0); Monocytes # (A) 1.12 10*3/uL (0.20-1.00); Monocytes % (A) 5.0 %; Neutrophils # (A) 19.56 10*3/uL (1.80-7.70); Neutrophils % (A) 88.1 %; Platelet Count 212 10*3/uL (140-440); RBC 3.20 10*6/uL (4.10-5.20); RDW 15.0 % (11.5-14.5); WBC 22.21 10*3/uL (4.50-10.00)
--- NOTE | 2024-10-29 07:42 | P.DS ---
Providers Date of admission: 10/28/24 05:40 Expected date of discharge: 10/29/24 Attending physician: Antonino Starks Primary care physician: Stated None - Discharge Diagnosis(es) (1) Term Current Visit: Yes Status: Acute (2) Normal spontaneous vaginal delivery Current Visit: Yes Status: Acute Hospital Course: The patient is a 29-year-old 6 para 1-0-4-1 admitted at 39 weeks by good dating parameters. She is admitted for elective induction of labor with all signs reassuring, category 1 heart rate tracing. Her has been uncomplicated though she does carry diagnosis of gestational diabetes with excellent diet control and reassuring testing weekly from 32 weeks. Group B strep status is negative. On labor and delivery, she had Pitocin started followed by artificial rupture of membranes. She made progress through the latent phase of labor and had an epidural catheter placed for analgesia. She then continued to progress to complete after which time she pushed to a normal spontaneous vaginal delivery of a viable 8 pound 4 ounce baby boy with Apgars of 8 at 1 minute and 9 at 5 minutes. Her course was unremarkable with vital signs remaining stable and her temperature was afebrile throughout. She was deemed stable for discharge on day #2 and was discharged home to follow-up in the office in 6 weeks routinely. Discharge instructions include for any significantly increased bleeding or foul-smelling lochia, significantly increased fever abdominal pain, perineal complaints, breast complaints, or anything else of concern to her. She was additionally instructed to have nothing in the vagina for at least 6 weeks time to include intercourse. She understood her instructions and agrees to follow-up as noted above. Discharge medications included only [id number] analgesic pain medications as well as continued vitamins as she has opted to breast- feed. Maternal blood type is B+ and rubella status is immune. Procedures: #1. Pitocin induction #2. Artificial rupture of membranes #3. Epidural analgesia #4. Normal spontaneous vaginal delivery Patient Condition at Discharge: Stable Plan - Discharge Summary New Discharge Prescriptions: No Action No Known Home Medications Discharge Medication List No Known Home Medications 10/28/24 [History] Follow up Appointment(s)/Referral(s): Antonino Starks MD [STAFF PHYSICIAN] - 12/10/24 11:00 am Discharge Disposition: HOME SELF-CARE
[2024-10-29 19:11] VITALS: BP 110/75; PULSE 91; TEMP 98.6
== END 2024-10-29 20:02 | disposition home or self-care (01) | DRG 560 ==
LOC: 4FBP 05:40
PROVIDERS: ADMIT Obstetrics & Gynecology; ATTEND Obstetrics & Gynecology
PROC: 10E0XZZ Delivery of Products of Conception, External Approach (ICD-10-PCS; principal; 2024-10-28)
PROC: 10907ZC Drainage of Amniotic Fluid, Therapeutic from Products of Conception, Via Natural or Artificial Opening (ICD-10-PCS; 2024-10-28)
PROC: 3E033VJ Introduction of Other Hormone into Peripheral Vein, Percutaneous Approach (ICD-10-PCS; 2024-10-28)
DX: O24.420 Gestational diabetes mellitus in childbirth, diet controlled (principal); Z3A.39 39 weeks gestation of pregnancy; Z37.0 Single live birth; Z86.14 Personal history of Methicillin resistant Staphylococcus aureus infection
CPT/HCPCS: 85025; 86850; 86900; 86901